=== PATIENT | female | born 1935 | race Caucasian/White ===

== ENCOUNTER 2016-07-29 18:42 | Emergency (ER) | payer MEDICARE ==
--- NOTE | ~2016-07-29 | US85 ---
[facility] A Service of [facility] RADIOLOGY TEXT RESULTS PATIENT: JEEVAN TENA LOCATION: [facility] : 37 UNIT #: [id number] AGE: [address]: Dorene Marcial MD SEX: F ORDER DR: [id number] [facility] [address] [place], [place] [address] [id number] P MR#: [id number] Acc #: [id number] NAME: JEEVAN TENA. : 1935 SEX: F STUDY DATE/TIME: 07/29/2016 16:09 UNIT: [facility] ROOM: STUDY DESCRIPTION: [facility] Unil or [facility] Attending Physician: Dorene Marcial M.D. Ordering Physician: Dorene Marcial M.D. Primary Care Physician: Fabrizio Olivera M.D. MEDICAL IMAGING REPORT This report is preliminary unless electronic signature is present EXAM Left lower extremity venous ultrasound, 07/29/2016 INDICATION Left foot swelling for 8 days. TECHNIQUE Venous ultrasound examination of the left lower extremity was performed using grayscale, spectral Doppler and color flow Doppler imaging. FINDINGS The examination is negative. There is no evidence of left lower extremity deep venous thrombus from the groin to the lower calf. Visualized greater saphenous vein is also patent. IMPRESSION Negative examination. No evidence of left lower extremity deep venous thrombosis. Dictated by... Tawanda Sears M.D. THIS IS AN ELECTRONICALLY VERIFIED REPORT Tawanda Sears M.D. at 07/30/2016 7:18 AM KYLIE/hernan TD: 07/30/2016 02:41 JOB #: [id number] MEDICAL IMAGING REPORT [facility] A Service of [facility] RADIOLOGY TEXT RESULTS PATIENT: JEEVAN TENA LOCATION: [facility] : 37 UNIT #: [id number] AGE: [address]: Dorene Marcial MD SEX: F ORDER DR: COPY
[2016-07-29 15:57] LABS: BASOPHIL% 0.6 % (0-2.5); EOSINOPHIL# 0.2 X10e3 (0-0.7); EOSINOPHIL% 2.7 % (0.0-7.0); HEMATOCRIT 32.6 % (35.0-45.0); HEMOGLOBIN 10.9 gm/dL (12.0-16.0); LYMPHOCYTE% 27.5 % (17.0-45.0); MEAN CELL VOLUME 85.8 FL (83-96); MEAN CORPUSCULAR HEMOGLOBIN 28.8 PG (28-34); MEAN CORPUSCULAR HGB CONC 33.5 g/dL (30-36); MEAN PLATELET VOLUME 9.4 FL (6.5-11.5); MONOCYTE# 0.8 X10e3 (0-1.0); MONOCYTE% 10.7 % (3.0-12.0); NEUTROPHIL# 4.4 X10e3 (1.5-7.1); NEUTROPHIL% 58.5 % (40-75); PLATELET COUNT 255 X10e3 (140-420); RED CELL DISTRIBUTION WIDTH 13.7 % (11.0-15.5); WHITE BLOOD COUNT 7.4 X10e3 (4.0-10.5)
[2016-07-29 15:58] LABS: DIFF IND NO
[2016-07-29 16:10] LABS: PARTIAL THROMBOPLASTIN TIME 29.5 SECONDS (23.5-31.3); PROTHROMBIN TIME (PATIENT) 10.7 SECONDS (9.6-11.5)
[2016-07-29 16:42] LABS: ALBUMIN SERUM 3.6 g/dL (3.5-5.0); ALKALINE PHOSPHATASE 28 U/L (32-92); ALT (SGPT) 19 U/L (10-40); AST (SGOT) 18 U/L (10-42); BILIRUBIN,TOTAL 0.4 mg/dL (0.2-2.0); BLOOD UREA NITROGEN 42 mg/dL (9-23); CALCIUM SERUM 9.9 mg/dL (8.4-10.2); CARBON DIOXIDE 30 mmol/L (22-31); CHLORIDE 98 mmol/L (100-111); CREATININE SERUM 1.9 mg/dL (0.6-1.4); GLOM FILT RATE Estimated 27.2 mL/min (>60); GLUCOSE FASTING 129 mg/dL (70-110); POTASSIUM 4.4 mmol/L (3.5-5.1); PROTEIN TOTAL SERUM 7.4 g/dL (6.0-8.3); SODIUM 136 mmol/L (135-145)
[2016-07-29 16:54] LABS: BILIRUBIN, DIRECT <0.1 mg/dL (0.0-0.2); BILIRUBIN,INDIRECT 0.3 mg/dL (0.0-0.9)
[~2016-07-29 18:42] MED LIST: ACIPHEX20 MG PO; ALBUTEROL MININEB NEB; AMARYL PO; ASPIRIN PO; ASPIRIN325 M1 PO; ASPIRIN81 M2 PO; ASPIRIN81 MG PO; BENICAR HCT 40/1 TAB PO; BYSTOLIC10 MG PO; CALCIUM 500 + D1 TAB PO; CARVEDILOL3.125 MG PO; CENTRUM SILVER PO; CIPRO250 M1 PO; COLACE PO; FISH OIL 1,0001 CAP PO; FISH OIL 1,2001 EAC1 PO; FOSINOPRIL PO; FOSINOPRIL SODI40 M1 PO; GLUCOSAMINE & C1 CAP PO; GLUCOSAMINE/CONDROIT PO; HYDRALAZINE HCL25 MG PO; HYDROCODON-ACE1 EAC1 PO; HYDROCODONE-APA1 T30 PO; IRON1 TAB PO; IRON325 ( 652 PO; JANUVIA PO; KCL PO; LASIX PO; LASIX20 MG PO; LEVEMIR SUBQ; LEVEMIR100 UNITS/ SUBQ; LISINOPRIL2.5 MG PO; LORTAB 5/500 TA1 TA1 PO; LORTAB PO; LOVAZA PO; LYRICA PO; MIRALAX255 GM PO; MULTI-VITAMIN1 EAC1 PO; MULTIVITAMIN1 UDCAP PO; MYSOLINE50 M1 PO; MYSOLINE50 MG PO; NIASPAN PO; NIFEREX-150150 MG PO; NOVOLIN N100 UNIT/1 SUBQ; NOVOLOG100 U/ML SUBQ; OS CAL PO; PLAVIX PO; PRAVACHOL20 MG PO; PRAVASTATIN SOD20 MG PO; PREDNISONE PO; PRIMIDONE50 MG PO; PROTONIX PO; RANITIDINE HCL150 M1 PO; SIMVASTATIN40 MG PO; SYMBICORT INH; TRADJENTA5 MG PO; TRILIPIX135 MG PO; VITAMIN D1000 UNIT PO; VITAMIN D2000 UNIT PO; VITEYES OU; VITEYES PO; VYTORIN PO; ZANTAC150 M1 PO; ZITHROMAX PO; [UNRECOGNIZED DRUG - OTHER] PO
== END 2016-07-29 19:42 | disposition home or self-care (01) ==
LOC: CED 18:42
PROVIDERS: Emergency Medicine
DX: L03.116 Cellulitis of left lower limb (principal); I12.9 Hypertensive chronic kidney disease with stage 1 through stage 4 chronic kidney disease, or unspecified chronic kidney disease; N18.9 Chronic kidney disease, unspecified; E11.9 Type 2 diabetes mellitus without complications; E78.5 Hyperlipidemia, unspecified; Z86.73 Personal history of transient ischemic attack (TIA), and cerebral infarction without residual deficits; Z90.710 Acquired absence of both cervix and uterus; Z88.0 Allergy status to penicillin; Z79.899 Other long term (current) drug therapy
CPT/HCPCS: 36415; 80048; 80076; 85025; 85610; 85730; 87040; 93971; 96365; 96366; 99284; J3370

== ENCOUNTER 2016-10-01 12:26 | Emergency (ER) | payer MEDICARE ==
--- NOTE | ~2016-10-01 | US85 ---
[facility] A Service of [facility] RADIOLOGY TEXT RESULTS PATIENT: JEEVAN TENA LOCATION: [facility] : 37 UNIT #: [id number] AGE: [address]: Dorene Marcial MD SEX: F ORDER DR: [id number] [facility] [address] [place], [place] [address] [id number] E MR#: [id number] Acc #: [id number] NAME: JEEVAN TENA. : 1935 SEX: F STUDY DATE/TIME: 10/01/2016 14:47 UNIT: [facility] ROOM: STUDY DESCRIPTION: [facility] Unilat or [facility] Stdy Attending Physician: Dorene Marcial M.D. Ordering Physician: Dorene Marcial M.D. Primary Care Physician: Fabrizio Olivera M.D. MEDICAL IMAGING REPORT This report is preliminary unless electronic signature is present EXAM Right leg vein Doppler on 10/01. HISTORY Right leg pain for one day after a fall yesterday. TECHNIQUE Venous ultrasound examination of the right lower extremity was performed using grayscale, spectral Doppler and color flow Doppler imaging. FINDINGS The examination is negative. There is no evidence of right lower extremity deep venous thrombus from the groin to the lower calf. Visualized greater saphenous vein is also patent. IMPRESSION Negative examination. No evidence of right lower extremity deep venous thrombosis. Dictated by... Serge Sanon Jr., M.D. THIS IS AN ELECTRONICALLY VERIFIED REPORT Serge Sanon Jr., M.D. at 10/01/2016 5:01 PM FEDE/susanna TD: 10/01/2016 16:50 JOB #: [id number] MEDICAL IMAGING REPORT [facility] A Service [facility] RADIOLOGY TEXT RESULTS PATIENT: JEEVAN TENA LOCATION: [facility] : 37 UNIT #: [id number] AGE: [address]: Dorene Marcial MD SEX: F ORDER DR: Page 1 of 1 COPY
--- NOTE | ~2016-10-01 | CR173 ---
[facility] A Service of [facility] RADIOLOGY TEXT RESULTS PATIENT: JEEVAN TENA LOCATION: [facility] : 37 UNIT #: [id number] AGE: [address]: Dorene Marcial MD SEX: F ORDER DR: [id number] [facility] [address] [place], [place] [address] [id number] E MR#: [id number] Acc #: [id number] NAME: JEEVAN TENA. : 1935 SEX: F STUDY DATE/TIME: 10/01/2016 13:51 UNIT: [facility] ROOM: STUDY DESCRIPTION: CR Knee 3 Views Rt Attending Physician: Dorene Marcial M.D. Ordering Physician: Dorene Marcial M.D. Primary Care Physician: Fabrizio Olivera M.D. MEDICAL IMAGING REPORT This report is preliminary unless electronic signature is present EXAM Right knee, 3 views. HISTORY Knee pain after a twisting injury yesterday. FINDINGS 3 views of the right knee demonstrate satisfactory knee alignment. [id number] degenerative changes in the patellofemoral joint, greater along the lateral patellar facet. Small suprapatellar effusion. No fracture. No dislocation. Mild arterial calcifications. IMPRESSION 1. Small suprapatellar effusion. 2. No fracture. 3. 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 4. Small medial and lateral joint line marginal osteophytes. Dictated by... Guanakito Hernandez M.D. THIS IS AN ELECTRONICALLY VERIFIED REPORT Guanakito Hernandez M.D. at 10/01/2016 5:47 PM CHADWICK/susanna TD: 10/01/2016 16:31 JOB #: [id number] MEDICAL IMAGING REPORT Page 1 of 1 COPY
== END 2016-10-01 15:32 | disposition home or self-care (01) ==
LOC: CED 12:26
DX: M17.11 Unilateral primary osteoarthritis, right knee (principal); I13.10 Hypertensive heart and chronic kidney disease without heart failure, with stage 1 through stage 4 chronic kidney disease, or unspecified chronic kidney disease; I25.10 Atherosclerotic heart disease of native coronary artery without angina pectoris; E11.22 Type 2 diabetes mellitus with diabetic chronic kidney disease; N18.9 Chronic kidney disease, unspecified; J44.9 Chronic obstructive pulmonary disease, unspecified; D63.1 Anemia in chronic kidney disease; Z86.73 Personal history of transient ischemic attack (TIA), and cerebral infarction without residual deficits; Z88.0 Allergy status to penicillin; Z79.899 Other long term (current) drug therapy; Z79.01 Long term (current) use of anticoagulants; Z79.82 Long term (current) use of aspirin; Z79.4 Long term (current) use of insulin
CPT/HCPCS: 73562; 93971; 96374; 99284; J2270